=== PATIENT | female | born 1995 | race Caucasian/White ===

== ENCOUNTER 2017-10-17 14:17 | Outpatient (CLI) | payer OTHER ==
[2017-10-17 14:27] LABS: BASOPHILS % 0.7 (0.0-1.5); EOSINOPHILS % 2.3 % (0.0-6.8); MEAN CORPUSCULAR HEMOGLOBIN 31.8 pg (28.0-34.0); MEAN CORPUSCULAR VOLUME 90.3 fl (80.0-100.0); NEUTROPHILS # 6.8 # k/uL (1.4-7.7)
[2017-10-17 14:36] LABS: eGFR (African) > 60; eGFR (Non-African) > 60
== END 2017-10-17 14:20 ==
LOC: LABRHC 14:17
PROVIDERS: ATTEND Family Medicine
DX: J40 Bronchitis, not specified as acute or chronic (principal)
CPT/HCPCS: 80053; 85025